=== PATIENT | female | born 1950 | race Caucasian/White ===

== ENCOUNTER 2019-08-08 13:26 | Inpatient (IN) | payer MEDICARE, OTHER ==
[~2019-08-08] VITALS: Ht 165.1 cm; Wt 54.4 kg
[2019-08-08 13:34] VITALS: BP 162/76
[2019-08-08] MEDS ORDERED: LEVOXYL112 MCG PO (13:38)
[2019-08-08 15:23] LABS: ABSOLUTE BASOPHILS 0.1 thou/uL (0.0-0.2); ABSOLUTE EOSINOPHILS 0.2 thou/uL (0.0-0.7); ABSOLUTE LYMPHOCYTES 1.3 thou/uL (0.8-5.3); ABSOLUTE MONOCYTES 0.7 thou/uL (0.0-1.2); ABSOLUTE NEUTROPHILS 10.6 thou/uL (1.6-8.1); BASOPHILS 0.6 %; EOSINOPHILS 1.3 %; HEMATOCRIT 36.8 % (37.0-47.0); HEMOGLOBIN 12.7 gm/dL (12.0-15.0); LYMPHOCYTES 9.9 %; MCH 35.1 pg (26.0-34.0); MCHC 34.4 g/dL (28.0-37.0); MCV 102.1 fL (80.0-100.0); MONOCYTES 5.5 %; MPV 8.2 fl. (7.2-11.1); NUCLEATED RBCS 0 /100WBC; PLATELET COUNT* 199 thou/uL (150-400); POLYS 82.7 %; RBC 3.61 mil/uL (4.20-5.00); RDW-CV 12.7 % (10.5-14.5); WBC 12.8 thou/uL (4.0-11.0)
[2019-08-08 15:31] LABS: CALCIUM 8.9 mg/dL (8.5-10.1); POTASSIUM 4.2 mmol/L (3.5-5.1)
[2019-08-08 15:32] LABS: APTT 23.8 Seconds (25.0-31.3); PROTIME 10.5 Seconds (9.20-11.50)
[2019-08-08 15:36] LABS: ALBUMIN 3.7 g/dL (3.4-5.0); TOTAL BILIRUBIN 0.4 mg/dL (<0.1-1.0); TOTAL PROTEIN 7.1 g/dL (6.4-8.2)
[2019-08-08 16:27] VITALS: BP 170/81
[2019-08-08 17:21] VITALS: BP 165/86
--- NOTE | 2019-08-08 17:27 | NUR ---
PT ADMITTED/ PT ALERT AND ORIENTED. PT ORIENTED TO ROOM. ASSESSMENT COMPLETED. FALL RISK PRECAUITIONS IN PLACE. WILL CONTINUE TO MONITOR.
--- NOTE | 2019-08-08 18:12 | NUR ---
PT REMAINED ALERT AND ORIENTED. PT DENIED ANY PAIN AT THIS TIME. FALL RISK PRECAUTIONS IN PLACE. HOURLY ROUNDING COMPLETED. WILL CONTINUE TO MONITOR.
[2019-08-08 19:30] VITALS: BP 159/76
--- NOTE | 2019-08-09 04:07 | NUR ---
PT A&OX4, ON ROOM AIR, VSS, PT NWB TO RLE, PURE WICK IN PLACE. PT REFUSED Q2H TURNS D/T PAIN, PAIN MEDS REFUSED - PT STATES SHE HAS NO PAIN IF SHE DOESN'T MOVE. SCD'S IN PLACE, HEELS OFF LOADED WITH PILLOW. PT SLEEPING WELL. WILL CONTINUE WITH PLAN OF CARE.
[2019-08-09 07:56] VITALS: BP 173/77
[2019-08-09 09:25] LABS: HEMATOCRIT 33.4 % (37.0-47.0); HEMOGLOBIN 11.8 gm/dL (12.0-15.0); MCHC 35.3 g/dL (28.0-37.0); MCV 102.1 fL (80.0-100.0); MPV 7.9 fl. (7.2-11.1); RBC 3.28 mil/uL (4.20-5.00); RDW-CV 12.6 % (10.5-14.5); WBC 8.7 thou/uL (4.0-11.0)
[2019-08-09 09:33] LABS: CALCIUM 7.9 mg/dL (8.5-10.1); POTASSIUM 3.8 mmol/L (3.5-5.1)
--- NOTE | 2019-08-09 10:50 | NUR ---
ASSUMED CARE OF PATIENT. I ASSESSED PT AND THIER NEEDS. I AGREE WITH MORNING ASSESSMENT. FALL RISK PRECAUTIONS IN PLACE. WILL CONTINUE TO MONITOR.
--- NOTE | 2019-08-09 16:47 | NUR ---
Avni STEWARD.RECOMMENDED FRONT WHEEL WALKER FOR PT. PT.HAS CRUTHES BUT THERAPY SAID SHE WOULD BE SAFER WITH A WALKER. SHE LIVES WITH HER . SHE IS NORMALLY INDEPENDENT. FELL AT WORK. NOT WALKING IN THERAPY SO WILL NO BE DISCHARGED TODAY, PER NURSING.
[2019-08-09 17:22] VITALS: BP 148/78
--- NOTE | 2019-08-09 17:33 | NUR ---
PT REMAINED ALERT AND ORIENTED. PT WORKED WITH THERAPY. BRACE ON PT. PT DENIES ANY PAIN. PT EDUCATED ON USING CALLIGHT WHEN NEEDING ASSITANCE. FALL RISK PRECAUTIONS IN PLACE. HOURLY ROUNDING COMPLETED. WILL CONTINUE TO MONITOR.
[2019-08-09 21:24] VITALS: BP 154/78
--- NOTE | 2019-08-10 06:03 | NUR ---
PUREWICK IN PLACE, DID NOT GET UP DURING NIGHT. PAIN IS WELL CONTROLLED. SHE HAD FLUIDS RUNNING ALL SHIFT AND RECEIVED ALL MEDS SCHEDULED. ALERT AND ORIENTED, ON ROOM AIR, HIP ABDUCTOR BRACE IN PLACE. PATIENT WANTS TO DISCHARGE TODAY. WILL CONTINUE TO MONITOR.
[2019-08-10 07:00] VITALS: BP 146/69
[2019-08-10] MEDS ORDERED: NORCO 5-325 TA1 EAC1 PO (09:46)
--- NOTE | 2019-08-10 10:00 | NUR ---
PT.LIVES WITH . HE CAN ASSIST HER NEEDED. SHE WOULD LIKE TO DO OUTPT.THERAPY. SHE WOULD LIKE TO SET IT UP ON HER OWN. SHE SAID SHE DOES HAVE A WALKER ATHOME, SO DOES NOT NEED ONE. TOLD HER TO CHECK WHICH THERAPY AGENCY HER WORKMANS COMP WOULD LIKE HER TO USE. SHE SAID SHE WANTED THIS FILED UNDER HER MEDICARE AND [facility] BENEFIT PLAN, NOT WORK COMP. TOLD HER SHE COULD CHOSE ANY OUTPT THERAPY DEPT TO USE. SHE SAID SHE WOULD SET IT UP. PT.READY FOR DISCHARGE.
[2019-08-10 10:06] VITALS: BP 146/69
--- NOTE | 2019-08-10 11:16 | NUR ---
PT REMAINED ALERT AND ORIENTED. PT GIVEN DISCHARGE INFORMATION, CARE NOTES, AND PRESCRIPTIONS. IV REMOVED. BRACE IN PLACE. PT BELONGINGS GATHERED. PT LEFT VIA WHEELCHAIR WITH NURSING STAFF TO HOME. FALL RISK PRECAUTIONS IN PLACE. HOURLY ROUNDING COMPLETED.
[2019-08-10 11:26] VITALS: BP 146/69
--- NOTE | 2019-08-10 21:31 | CON ---
[address] [address] CONSULTATION Name: IVANA GAO Room: [address] IN M.R.#: [id number] Admission: 08/08/19 Attend Phys: Angela Singh MD Discharge: 08/10/19 Date of : 54 Report #: [id number] THIS REPORT FOR: //name// cc: DUSTIN Juarez family physician/PCP DUSTIN - Ann family physician/PCP ~ THIS REPORT FOR: //name// CC: DUSTIN physician/PCP Angela Singh DATE OF SERVICE: 08/09/2019 ADMITTING DIAGNOSES: Right femur fracture around prior total hip arthroplasty. HISTORY OF PRESENT ILLNESS: The patient presented to [facility] for evaluation in the ER following a fall approximately at noon on 08/08/2019 at work. The patient states she tripped on a sheet and fell under her right hip. The patient had no head trauma or loss of consciousness. The patient was not having hip pain prior to this fall. The patient had previous total hip replacement over 5 years ago and was doing extremely well with this. The patient states the pain is now severe with movement. It lasts for several hours throughout the day. At rest, it is near 0-10. The patient also sits in bed currently without pain; however, if she moves or twists, it does cause increasing pain in her hip to a 9/10. We are consulted for further evaluation. PAST MEDICAL HISTORY: 1. Hypertension. 2. Kidney stone. 3. Hypothyroidism. PAST SURGICAL HISTORY: 1. Previous right total hip arthroplasty. 2. Hysterectomy. ALLERGIES: AMPICILLIN. PHYSICAL EXAMINATION: VITAL SIGNS: Temperature 36.7, pulse 60, respirations 16, blood pressure 170/81, pulse ox 97%. MEDICATIONS: Levothyroxine. FAMILY HISTORY: The patient has no pertinent family history. Noncontributory. SOCIAL HISTORY: The patient denies any tobacco, alcohol [place] [address] CONSULTATION Name: SAM GAOGERSON Garcia Room: [address]#: [id number] Admission: 08/08/19 Attend Phys: Angela Singh MD Discharge: 08/10/19 Date of : 54 Report #: [id number] REVIEW OF SYSTEMS: A 12-system review of systems was performed and negative except for pertinent positives in the HPI. PHYSICAL EXAMINATION: GENERAL: The patient is well developed, well nourished, in minimal distress, resting comfortably in bed. HEENT: Eyes: PERRLA. EOMI. Nose: Nares patent. Moist mucous membranes. Ears: Without hearing deficit. TMs normal. Throat: The patient is without exudate. Pharynx normal. NECK: Normal on inspection. Nontender. Supple. Full range of motion. RESPIRATORY: Chest nontender. Lungs clear. Normal breath sounds. No respiratory distress. CARDIOVASCULAR: Regular rate and rhythm. Pulses positive throughout the upper and lower extremities. No murmur. Peripheral pulses, +2 carotid, +2 dorsal pedis bilaterally. ABDOMEN: Normal bowel sounds. Soft, nontender. EXTREMITIES: The patient's right lower extremity does have some mild pain with log roll; however, able to perform exam. The patient is with leg off the bed without resistance and with only minimal effort. Does have pain in the groin with movement. NEUROLOGIC: Cranial nerves normal as tested. No motor deficits. Oriented x 3. SKIN: Normal color. Warm and dry LYMPHATIC: No adenopathy. Normal lymph nodes. LABORATORY EVALUATION: Sodium 139, potassium 4.2, chloride 102, carbon dioxide 29, BUN 17, creatinine 1, glucose 105, AST 28, ALT 26, alkaline phosphatase 128. INR is 1.0. White blood cells 12.8, hemoglobin 12.7, hematocrit 36.8, and platelet count 199. X-RAY EVALUATION: X-ray of the pelvis obtained on 08/08/2019 for previous right hip replacement, no acute abnormality identified. X-ray of the right femur, AP and lateral, after this point did show a subtle acute intertrochanteric nondisplaced fracture, partially obscured by prosthesis. Prior total hip arthroplasty with minimal patellofemoral arthrosis with suspected small joint effusion. PLAN: At this time, the patient is on bed rest. We will allow for use of the left lower extremity, nonweightbearing on the right lower extremity. Abduction brace is ordered and we would like to have this in place on her right hip to allow for stabilization and nonoperative treatment. The patient discussed both surgery and nonsurgical treatment and has elected to proceed with nonsurgical treatment at this time due to the femur fracture, which is acute and nondisplaced. The patient discussed this is most likely a [place] type A fracture and can be attempted nonoperative treatment. The patient would like to proceed with this. Continue pain control with medicine. Up with physical [facility] [address] [facility] [place] [address] CONSULTATION Name: IVANA GAO Room: [address] IN .R.#: [id number] Admission: 08/08/19 Attend Phys: Angela Singh MD Discharge: 08/10/19 Date of : 54 Report #: [id number] therapy to the left lower extremity. Continue nonweightbearing to the right lower extremity. Once brace in place, the patient will be discharged to home care. States she has her who is able to care for her. I would like to see her back in 1-2 weeks in the office with new x-rays of this hip. Please contact the office for further appointments. <ELECTRONICALLY SIGNED> By: Jc Olivares II, DO 08/10/19 2131 0847 [id number] Olivares II, DO /nt
== END 2019-08-10 11:26 | disposition home or self-care (01) | DRG 536 ==
LOC: M.ERS 13:26 → M.ORTHSURG 15:20 → M.TBA-ER 15:20 → M.ORTHSURG 16:50
PROVIDERS: Physician Assistant; ADMIT Internal Medicine; ATTEND Internal Medicine
DX: S72.144A Nondisplaced intertrochanteric fracture of right femur, initial encounter for closed fracture (principal); I10 Essential (primary) hypertension; Z87.442 Personal history of urinary calculi; E03.9 Hypothyroidism, unspecified; Z96.641 Presence of right artificial hip joint; Z90.710 Acquired absence of both cervix and uterus; Z88.1 Allergy status to other antibiotic agents; W18.39XA Other fall on same level, initial encounter; Y93.89 Activity, other specified; Y92.89 Other specified places as the place of occurrence of the external cause; Y99.8 Other external cause status

== ENCOUNTER 2020-03-26 15:28 | Emergency (ER) | payer MEDICARE, OTHER ==
[~2020-03-26] VITALS: Ht 165.1 cm; Wt 58.1 kg
[~2020-03-26 15:28] MED LIST: LEVOXYL112 MCG PO; NORCO 5-325 TA1 EAC1 PO
[2020-03-26 16:02] LABS: URINE BILIRUBIN NEGATIVE (Negative); URINE BLOOD TRACE (Negative); URINE CLARITY CLEAR; URINE COLOR STRAW; URINE GLUCOSE-RANDOM NEGATIVE (Negative); URINE KETONES NEGATIVE (Negative); URINE LEUKOCYTES-REFLEX NEGATIVE (Negative); URINE NITRITE-REFLEX NEGATIVE (Negative); URINE PROTEIN NEGATIVE (Negative); URINE SPECIFIC GRAVITY <= 1.005 (1.005-1.030); URINE UROBILINOGEN 0.2 E.U./dl (0.2-1.0)
[2020-03-26 16:12] LABS: ABSOLUTE BASOPHILS 0.1 thou/uL (0.0-0.2); ABSOLUTE EOSINOPHILS 0.1 thou/uL (0.0-0.7); ABSOLUTE LYMPHOCYTES 2.9 thou/uL (0.8-5.3); ABSOLUTE MONOCYTES 1.2 thou/uL (0.0-1.2); ABSOLUTE NEUTROPHILS 7.6 thou/uL (1.6-8.1); BASOPHILS 0.6 %; EOSINOPHILS 1.1 %; HEMATOCRIT 40.4 % (37.0-47.0); HEMOGLOBIN 13.5 gm/dL (12.0-15.0); LYMPHOCYTES 24.4 %; MCH 35.2 pg (26.0-34.0); MCHC 33.4 g/dL (28.0-37.0); MCV 105.5 fL (80.0-100.0); MONOCYTES 9.7 %; MPV 7.8 fl. (7.2-11.1); NUCLEATED RBCS 0 /100WBC; PLATELET COUNT* 207 thou/uL (150-400); POLYS 64.2 %; RBC 3.83 mil/uL (4.20-5.00); RDW-CV 13.2 % (10.5-14.5); WBC 11.9 thou/uL (4.0-11.0)
[2020-03-26 16:20] LABS: CALCIUM 9.8 mg/dL (8.5-10.1); CREATININE 1.1 mg/dL (0.6-1.3)
[2020-03-26 16:22] LABS: POTASSIUM 2.6 mmol/L (3.5-5.1)
[2020-03-26 16:23] LABS: APTT 21.7 Seconds (25.0-31.3); PROTIME 10.7 Seconds (9.20-11.50)
[2020-03-26 16:33] LABS: ALBUMIN 3.8 g/dL (3.4-5.0); TOTAL BILIRUBIN 0.7 mg/dL (<0.1-1.0); TOTAL PROTEIN 7.3 g/dL (6.4-8.2)
[2020-03-26] MEDS ORDERED: POTASSIUM20 PO (17:36)
[2020-03-26 17:55] VITALS: BP 170/96
--- NOTE | 2020-03-27 10:32 | EKG ---
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 : 1950 Requested By: Geronimo Neal Order Number: [id number] MD: Isael Yanes Measurements Intervals [place] Rate: 74 P: -41 [place]: 86 QRS: 40 QRSD: 82 T: 56 QT: 417 QTc: 463 Interpretive Statements Sinus rhythm Short [place] interval Abnormal R-wave progression, early transition No previous ECG available for comparison Electronically Signed On 03-27-2020 10:32:19 SAUSAGE GRINDER by Isael Yanes [email or web address] <ELECTRONICALLY SIGNED> By: Isael Yanes MD, [facility] 03/27/20 1032 155 155 Isael Yanes MD, [facility] /EPI
== END 2020-03-26 17:57 | disposition left against medical advice (07) ==
LOC: M.ERS 15:28
PROVIDERS: Emergency Medicine Emergency Medical Services
DX: I63.9 Cerebral infarction, unspecified (principal); E87.6 Hypokalemia; Z20.828 Contact with and (suspected) exposure to other viral communicable diseases; I10 Essential (primary) hypertension; E03.9 Hypothyroidism, unspecified; Z96.641 Presence of right artificial hip joint; Z87.442 Personal history of urinary calculi; Z90.710 Acquired absence of both cervix and uterus

== ENCOUNTER 2020-03-27 10:17 | Inpatient (IN) | payer MEDICARE, OTHER ==
[~2020-03-27] VITALS: Ht 165.1 cm; Wt 58.1 kg
--- NOTE | ~2020-03-27 | CON ---
[address] [address] CONSULTATION Name: SAM GAOGERSON Garcia Room: [address] IN M.R.#: [id number] Admission: 03/28/20 Attend Phys: Mark Guzmán MD Discharge: Date of : 54 Report #: [id number] THIS REPORT FOR: cc: Wu Kenney MD, Tuongvan T. MD ~ Mick Chinchilla MD DATE OF SERVICE: 03/28/2020 HISTORY OF PRESENT ILLNESS: This is a 70-year-old female patient who was evaluated by me to determine any neurological etiology for the patient's dizziness. The patient says that she was dizzy yesterday, but she is not having any dizziness anymore. She never had this kind of dizziness before. She said she walked this morning and she was not wobbly and she did not have any uncoordinated gait. REVIEW OF SYSTEMS: Indicate that the patient was found to be hypertensive, how long she has been is not clear, long time ago she used to be on antihypertensive, but she does not take any antihypertensive now. She had hip problems in the past. To me, she denies any history of stroke. She said that she did not have the kind of dizziness she had. She denies any new eye, cardiac, respiratory, GI, , musculoskeletal, constitutional, dermatological, hematological, psychiatric, throat, allergic symptom associated with present symptomatology. She does have a history of kidney disease. PAST MEDICAL HISTORY: Positive for kidney problems and thyroid problems. FAMILY HISTORY: Positive for vascular disease. SOCIAL HISTORY: She does not smoke or abuse alcohol. PHYSICAL EXAMINATION: GENERAL: The patient's examination indicates that the patient is alert, responsive, able to follow simple and complex command. Her cranial nerve examination is unremarkable specifically, there is no nystagmus. She has symmetrical strength, sensation, reflexes and tone in all 4 extremities. Her position sense is intact in both lower extremities. There is no meningeal sign. I could not have a very good look at the patient's fundus. She is very well-built individual and her hearing and vision is adequate. NECK: There is no thyroid mass. There is no carotid bruit. CARDIAC: Unremarkable. LUNGS: No respiratory difficulty or rhonchi was noticed. Pulses are palpable. VITAL SIGNS: Blood pressure is 111/63, respirations 19, pulse is 84, [place] [address] CONSULTATION Name: IVANA GAO Room: [address]#: [id number] Admission: 03/28/20 Attend Phys: Mark Guzmán MD Discharge: Date of : 54 Report #: [id number] temperature is 98.1. Her blood pressure was higher when she came in. LABORATORY DATA: Her MCV is somewhat on the higher side and her vitamin B12 is somewhat on the lower side. She does not have any edema, cyanosis or jaundice. Her MRI of the brain is unremarkable. MRA of the head showed only subtle changes. Carotid Doppler is unremarkable. IMPRESSION: 1. It is unlikely that there is any neurological etiology for the patient's dizziness. She is being worked up for sepsis, ENT problems, cardiac problem, etc. and that is where I think we should concentrate. 2. She has an incidental finding of a possible aneurysm and possible vasculitis. The question is whether we should do further workup with a catheter angiogram or not and whether she needs further workup for vasculitis including idiopathic IT SOFTWARE DEVELOPER angiitis. This is an incidental finding, which does not have anything to do with the patient's symptoms. She needs a consultation with neuroradiologist as an outpatient to look at those films or a neurosurgeon to look at those films and see what they want to do. She also needs a consultation with a hairspring assembler as an outpatient to address the question of vasculitis as well as idiopathic IT SOFTWARE DEVELOPER angiitis. 3. Her vitamin B12 is low and MCV is high. I will suggest starting the patient on vitamin B12 supplement and checking a repeat vitamin B12 to make sure it is more than 400. 4. I will defer to you whether you want to do some basic collagen vascular workup here, or want to leave all the workup for the possibility of vasculitis to the hairspring assembler which she should see as an outpatient. We do not plan to follow up this patient, but please call if there is any question or if any followup is needed. Thank you very much for this referral. By: [id number] [id number] Chinchilla MD /nt
[~2020-03-27 10:17] MED LIST changes: +POTASSIUM20 PO
[2020-03-27 10:38] VITALS: BP 145/91
[2020-03-27 11:07] LABS: ABSOLUTE BASOPHILS 0.1 thou/uL (0.0-0.2); ABSOLUTE EOSINOPHILS 0.1 thou/uL (0.0-0.7); ABSOLUTE MONOCYTES 1.2 thou/uL (0.0-1.2); ABSOLUTE NEUTROPHILS 7.8 thou/uL (1.6-8.1); BASOPHILS 0.8 %; EOSINOPHILS 1.2 %; HEMATOCRIT 40.2 % (37.0-47.0); HEMOGLOBIN 13.4 gm/dL (12.0-15.0); LYMPHOCYTES 17.6 %; MCHC 33.3 g/dL (28.0-37.0); MONOCYTES 10.5 %; MPV 7.9 fl. (7.2-11.1); NUCLEATED RBCS 0 /100WBC; PLATELET COUNT* 195 thou/uL (150-400); POLYS 69.9 %; RBC 3.83 mil/uL (4.20-5.00); RDW-CV 13.1 % (10.5-14.5); WBC 11.1 thou/uL (4.0-11.0)
[2020-03-27 11:16] LABS: CALCIUM 8.9 mg/dL (8.5-10.1); CREATININE 1.1 mg/dL (0.6-1.3); POTASSIUM 3.5 mmol/L (3.5-5.1)
[2020-03-27 11:19] LABS: APTT 21.7 Seconds (25.0-31.3); PROTIME 10.6 Seconds (9.20-11.50)
[2020-03-27 11:29] LABS: ALBUMIN 3.6 g/dL (3.4-5.0); TOTAL BILIRUBIN 0.6 mg/dL (<0.1-1.0); TOTAL PROTEIN 6.9 g/dL (6.4-8.2)
[2020-03-27 11:53] LABS: URINE BILIRUBIN NEGATIVE (Negative); URINE BLOOD TRACE (Negative); URINE CLARITY CLEAR; URINE COLOR YELLOW; URINE GLUCOSE-RANDOM NEGATIVE (Negative); URINE KETONES NEGATIVE (Negative); URINE LEUKOCYTES-REFLEX TRACE (Negative); URINE NITRITE-REFLEX NEGATIVE (Negative); URINE PROTEIN NEGATIVE (Negative)
[2020-03-27 12:00] LABS: SQUAMOUS 0-3 Few /LPF (0-3); URINE RBC None Seen /HPF (0-2); URINE WBC-REFLEX 0-5 Rare /HPF (0-5)
[2020-03-27 12:02] LABS: BACTERIA-REFLEX None Seen /HPF (None Seen); CALCIUM OXALATE 4-10 Moderate /LPF (None Seen); CASTS None Seen /LPF (None Seen); MUCUS >6 Heavy strn/LPF (None Seen)
--- NOTE | 2020-03-27 14:47 | EKG ---
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 03/27/20 1447 1054 1054 Isael Yanes MD, [facility] /EPI
--- NOTE | 2020-03-27 15:57 | 2DMMODE ---
[place] [address] 2 D/M-MODE ECHOCARDIOGRAM Name: ZACHERY GAOKITA Garcia Room: [address] [place]#: [id number] Admission: 03/27/20 Attend Phys: Mark Guzmán, Discharge: Date of : 54 Date of Service: 03/27/20 1557 Report #: [id number] THIS REPORT FOR: cc: Wu Kenney MD, Tuongvan T. MD Blick, David R. MD [facility] ~ APPROVED REPORT Study performed: 03/27/2020 14:49:34 EXAM: Comprehensive 2D, Doppler, and color-flow Echocardiogram Patient Location: In-Patient Room #: er Status: routine BSA: 1.64 HR: 70 bpm BP: 162/92 mmHg Rhythm: NSR Other Information Study Quality: Good Indications CVA/TIA Echo Enhancing Agent Indication: Rule out Shunt Agent(s) / Amount(s) Used: Agitated Saline 10 cc 2D Dimensions IVSd: 10.90 (7-11mm) LVOT Diam: 20.39 (18-24mm) LVDd: 34.21 mm PWd: 9.10 (7-11mm) Ascending Ao: 28.96 (22-36mm) LVDs: 17.49 (25-40mm) Aortic Root: 27.46 mm Volumes Left Atrial Volume (Systole) LA ESV Index: 23.40 mL/m2 Aortic Valve AoV Peak Gianfranco.: 1.67 m/s AO Peak Gr.: 11.13 mmHg LVOT Max P.12 mmHg AO Mean Gr.: 5.95 mmHg LVOT Mean P.50 [place] [address] 2 D/M-MODE ECHOCARDIOGRAM Name: IVANA GAO Room: [address] M.R.#: [id number] Admission: 03/27/20 Attend Phys: Mark Guzmán, Discharge: Date of : 54 Date of Service: 03/27/20 1557 Report #: [id number] LVOT Max V: 1.74 m/s AO V2 VTI: 30.76 cm LVOT Mean V: 1.07 m/s CLARE (VTI): 3.32 cm2 LVOT V1 VTI: 31.23 cm Mitral Valve E/A Ratio: 0.80 MV Decel. Time: 355.35 ms MV E Max Gianfranco.: 0.78 m/s MV PHT: 103.05 ms MVA (PHT): 2.13 cm2 TDI E/Lateral E': 8.67 E/Medial E': 9.75 Medial E' Gianfranco.: 0.08 m/s Lateral E' Gianfranco.: 0.09 m/s Pulmonary Valve PV Peak Gianfranco.: 1.03 m/s PV Peak Gr.: 4.22 mmHg Tricuspid Valve RAP Estimate: 5.00 mmHg TR Peak Gr.: 21.87 mmHg RVSP: 26.00 mmHg PA Pressure: 26.00 mmHg Left Ventricle The left ventricle is normal size. There is normal LV segmental wall motion. There is normal left ventricular wall thickness. Left ventricular systolic function is normal. The left ventricular ejection fraction is within the normal range. LVEF is 65-70%. Grade I - abnormal relaxation pattern. Right Ventricle The right ventricle is normal size. The right ventricular systolic function is normal. Atria The left atrium size is normal. The interatrial septum is intact with no evidence for an atrial septal defect. The right atrium size is normal. Aortic Valve The aortic valve is normal in structure. No aortic regurgitation is present. There is no aortic valvular stenosis. Mitral Valve The mitral valve is normal in structure. [place] [address] 2 D/M-MODE ECHOCARDIOGRAM Name: SAM GAOGERSON Radha Room: [address] M.R.#: [id number] Admission: 03/27/20 Attend Phys: Mark Guzmán, Discharge: Date of : 54 Date of Service: 03/27/20 1557 Report #: [id number] No evidence of mitral valve stenosis. Tricuspid Valve The tricuspid valve is normal in structure. Trace tricuspid regurgitation. No pulmonary hypertension. Pulmonic Valve The pulmonary valve is normal in structure. There is no pulmonic valvular regurgitation. Great Vessels The aortic root is normal in size. IVC is normal in size and collapses >50% with inspiration. Pericardium There is no pericardial effusion. <Conclusion> LVEF is 65-70%. The interatrial septum is intact with no evidence for an atrial septal defect. <ELECTRONICALLY SIGNED> By: Isael Yanes MD, FACC 03/27/20 1557 1557 1557 Isael Yanes MD, FACC /INF
[2020-03-27 17:45] VITALS: BP 118/75
[2020-03-27 21:25] VITALS: BP 120/71
[2020-03-27 21:30] VITALS: BP 159/72
[2020-03-28 04:00] VITALS: BP 127/60
[2020-03-28 05:20] LABS: CHOLESTEROL 173 mg/dL (<200); HDL CHOLESTEROL 67 mg/dL (>40); LDL CHOLESTEROL 91 mg/dL (<100); TC:HDL 2.6 Ratio (Not establshd); TRIGLYCERIDE 79 mg/dL (<150); VLDL 16 mg/dL (<40)
[2020-03-28 05:32] LABS: SERUM ASSESSMENT Clear
[2020-03-28 08:00] VITALS: BP 111/63
[2020-03-28 12:00] VITALS: BP 112/66
[2020-03-28 16:00] VITALS: BP 147/82
[2020-03-28 20:04] VITALS: BP 132/72
[2020-03-28 23:43] VITALS: BP 125/65
[2020-03-29 02:06] LABS: GLYCOHEMOGLOBIN (HGB A1C) 5.5 % (4.8-5.6)
[2020-03-29 03:37] VITALS: BP 136/71
[2020-03-29 04:25] LABS: HEMATOCRIT 36.8 % (37.0-47.0); HEMOGLOBIN 12.5 gm/dL (12.0-15.0); MCH 35.2 pg (26.0-34.0); MCV 103.6 fL (80.0-100.0); MPV 8.4 fl. (7.2-11.1); RBC 3.55 mil/uL (4.20-5.00); RDW-CV 12.9 % (10.5-14.5); WBC 9.9 thou/uL (4.0-11.0)
[2020-03-29 04:31] LABS: CALCIUM 8.5 mg/dL (8.5-10.1); POTASSIUM 3.6 mmol/L (3.5-5.1)
[2020-03-29 08:00] VITALS: BP 137/71
[2020-03-29 11:49] VITALS: BP 131/70
[2020-03-29 16:35] VITALS: BP 131/70
== END 2020-03-29 17:17 | disposition home or self-care (01) | DRG 149 ==
LOC: M.ERS 10:17 → M.TBA-ER 12:12 → M.2W 12:12
PROVIDERS: Emergency Medicine Emergency Medical Services; Family Medicine; Internal Medicine; ADMIT Internal Medicine; ATTEND Internal Medicine
DX: H81.4 Vertigo of central origin (principal); I16.1 Hypertensive emergency; I10 Essential (primary) hypertension; E87.6 Hypokalemia; E03.9 Hypothyroidism, unspecified; Z96.641 Presence of right artificial hip joint; Z20.822 Contact with and (suspected) exposure to COVID-19; Z90.710 Acquired absence of both cervix and uterus; Z88.1 Allergy status to other antibiotic agents; Z79.899 Other long term (current) drug therapy

== ENCOUNTER 2020-08-23 12:13 | Inpatient (IN) | payer MEDICARE, OTHER ==
[~2020-08-23] VITALS: Ht 165.1 cm; Wt 60.3 kg
[2020-08-23] VITALS (12 sets, daily range): BP systolic 119–206; BP diastolic 55–90
[2020-08-23 12:42] LABS: ABSOLUTE BASOPHILS 0.1 thou/uL (0.0-0.2); ABSOLUTE LYMPHOCYTES 1.7 thou/uL (0.8-5.3); ABSOLUTE MONOCYTES 1.1 thou/uL (0.0-1.2); ABSOLUTE NEUTROPHILS 10.4 thou/uL (1.6-8.1); BASOPHILS 0.4 %; EOSINOPHILS 0.3 %; HEMATOCRIT 37.1 % (37.0-47.0); HEMOGLOBIN 12.9 gm/dL (12.0-15.0); LYMPHOCYTES 13.1 %; MCH 35.9 pg (26.0-34.0); MCHC 34.8 g/dL (28.0-37.0); MONOCYTES 8.3 %; MPV 7.8 fl. (7.2-11.1); NUCLEATED RBCS 0 /100WBC; PLATELET COUNT* 194 thou/uL (150-400); POLYS 77.9 %; RDW-CV 13.2 % (10.5-14.5); WBC 13.4 thou/uL (4.0-11.0)
[2020-08-23 12:58] LABS: CALCIUM 8.6 mg/dL (8.5-10.1); CREATININE 0.9 mg/dL (0.6-1.3); POTASSIUM 3.1 mmol/L (3.5-5.1)
[2020-08-23 13:03] LABS: ALBUMIN 3.6 g/dL (3.4-5.0); CK-MB MASS 130.3 ng/mL (<0.5-3.6); MAGNESIUM 1.9 mg/dL (1.8-2.4); TOTAL BILIRUBIN 0.6 mg/dL (<0.1-1.0); TOTAL PROTEIN 7.4 g/dL (6.4-8.2)
--- NOTE | 2020-08-23 16:09 | EKG ---
[place] [address] ELECTROCARDIOGRAM REPORT Name: IVANA GAO Room: [address] ADM IN .R.#: [id number] Admission: 08/23/20 Attend Phys: Isael Yanes MD Discharge: Date of : 54 Date of Service: 08/23/20 1217 Report #: [id number] THIS REPORT FOR: //name// [facility] ED Test Date: 2020-08-23 Test Time: 12:17:00 Pat Name: IVANA GAO Department: Room: 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
--- NOTE | 2020-08-23 16:12 | EKG ---
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: FABI : 1950 Requested By: Tod Li Order Number: [id number] MD: Isael Yanes Measurements Intervals [place] Rate: 72 P: -42 [place]: 95 QRS: 39 QRSD: 97 T: 246 QT: 473 QTc: 518 Interpretive Statements ectopic atrial rhythm Short [place] interval Low voltage, extremity leads Probable posterior infarct, Abnrm T, consider ischemia, anterolateral lds Prolonged QT interval Compared to ECG 03/27/2020 10:54:[address] elevation no longer noted Prolonged QT interval now present Electronically Signed On 08-23-2020 16:11:53 CDT by Isael Yanes [email or web address] <ELECTRONICALLY SIGNED> By: Isael Yanes MD, [facility] 08/23/20 1611 1529 1529 Isael Yanes MD, [facility] /EPI
--- NOTE | 2020-08-23 16:48 | CARD ---
[address] [address] CARDIAC CATH REPORT Name: IVANA JUNIOR Room: [address] IN [facility]#: [id number] Admission: 08/23/20 Attend Phys: Isael Yanes MD, F Discharge: Date of : 54 Report #: [id number] THIS REPORT FOR: cc: Wu Kenney MD, Tuongvan T. MD Blick, David R. MD [facility] ~ APPROVED REPORT Study performed: 08/23/2020 12:28:28 Patient Details Patient Status: ED Room #: 15 The patient is a 70 year-old female Event Personnel Isael Yanes Rubber Compounder Mixer, Amber Flowers RN Crankshaft Straightener, Claudia Junior RN Monitor , Sancho Lucas RTR Scrub Procedures Performed Art Access - R radial artery Left Heart Cath w/or w/o Coronaries [facility] MAR Place Revasc w/wo Plasty Single OM-[address] w/wo Plasty Single LAD Indication Abnormal ECG, STEMI (>12 hrs to = 24 hrs), Chest pain Risk Factors Hypertension Admission/Lab Medications/Medications given during procedure Aspirin, Glycoprotein IllbIlla Inhibitors, Beta BlockerHeparin Unfract. Procedure Narrative The patient was brought emergently to the Cardiac Catheterization Laboratory and was prepped and draped in a sterile manner. The right wrist was infiltrated with 2% Lidocaine subcutaneous anesthesia. The right wrist accessed via ultrasound guidance. A Slender Glidesheath sheath was inserted into the right radial artery. Coronary angiography was performed using coronary diagnostic catheters. The right coronary system was accessed and visualized with a 6 Fr JR4 catheter. The left coronary system was accessed and visualized with a 6Fr JL4 catheter. The left ventricle was [place] [address] CARDIAC CATH REPORT Name: SAM JUNIORGERSON Garcia Room: [address]#: [id number] Admission: 08/23/20 Attend Phys: Isael Yanes MD, F Discharge: Date of : 54 Report #: [id number] a 6Fr Pigtail catheter. Left ventricular/Aortic Valve gradient assessed via catheter pullback. Left ventriculogram was performed in CAL projection. The patient tolerated the procedure well and there were no complications associated with the procedure. A hematoma occurred. Very small hematoma resolved prior to transfer to floor Intraoperative Conscious Sedation Sedation start time: 13:03 Case end Time: 13:47 Fentanyl 25 mcg Versed 1 mg Fluoro Time: 12.0 minutes Dose: DAP 37212 cGycm2 1802 mGy Contrast Type and Amount: Visipaque 270 ml Coronary Angiography The patient's coronary anatomy is right dominant. Diagnostic Cath Left Main 0% stenosis LAD 50% proximal, 90% mid, and 80% distal stenosis. The apical LAD was a small vessel and had a 90% stenosis Diagonal 1 small vessel with 70% ostial stenosis Diagonal 2 medium sized vessel with 70% ostial stenosis Circumflex 30% proximal and 30% mid stenosis OM3 large vessel that was 100% occluded distally with thrombus noted. Retrograde collateral flow was noted from the RCA. Right Coronary 50% mid and 50% distal stenosis noted R PDA 90% ostial stenosis noted Left Ventriculography The left ventricle is normal in size with contractility. The left ventricular ejection fraction is estimated to be 30-35%. Left ventricular wall motion abnormalities are not present. There is no mitral insufficiency. Akinesis noted of the entire apex. Hemodynamics The aortic pressure is 169/89 mmHg with a mean of 121 mmHg. The left ventricular pressure is 169/23 mmHg with a mean of mmHg. The left ventricular end diastolic pressure is 31 mmHg. There was no gradient across the aortic valve upon pullback. Pullback from the left ventricle to the aorta revealed no gradient [place] [address] CARDIAC CATH REPORT Name: IVANA JUNIOR Room: [address]#: [id number] Admission: 08/23/20 Attend Phys: Isael Yanes MD, F Discharge: Date of : 54 Report #: [id number] valve. PCI Technique Lesion Anticoagulation was achieved with Heparin. bolus of IV aggrastat given Percutaneous coronary intervention was performed on the third obtuse marginal branch segment. The lesion stenosis prior to intervention was 100% with ANNETTE 1 flow. A 6FR XB 3.0 100CM Guide Catheter was used to engage the lm ostium. A IG: BMW 190cm Interventional Guidewire was used to cross the lesion. BALLOON DILATION A Balloon catheter Trek RX 2.5 X 8 was inserted and inflated up to 8.00atm for 12seconds. Repeat angiography revealed the following post-dilatation results: 50% stenosis. STENT DEPLOYMENT A drug-eluting stent Ari RX Stent 2.5X38mm was inserted and inflated up to 10.00atm for 16seconds. Repeat angiography revealed the following post-stent deployment results: 0% stenosis. Additional Inflation: 11.00atm for 12seconds. Additional Inflation: 14.00atm for 13seconds. Additional Inflation: 16 atmfor 6 seconds Additional Inflation:19 clinton for 17 seconds Final angiography reveals 0 % stenosis with ANNETTE 3 flow. PCI Technique Lesion 2 Percutaneous Coronary Intervention was performed on the mid and distal left anterior descending artery segment. The lesion stenosis prior to intervention was 90% with ANNETTE 3 flow. A XB3.0 Guide Catheter was used to engage the lm ostium. A IG: BMW 190cm Interventional Guidewire was used to cross the lesion. Balloon Dilation A Balloon catheter Trek RX 2.5 X 8 was inserted and inflated up to 4.00atm for 8seconds. Repeat angiography revealed the following post-dilatation results: 50% stenosis. Additional Inflation: 8.00atm for 12seconds. Stent Deployment A drug-eluting stent Alton RX Stent 2.18T62qn was inserted and inflated up to 8.00atm for 10seconds. Repeat angiography revealed the following post-stent deployment results: 0% stenosis. Additional Inflation: 12.00atm for 15seconds. Additional Inflation: 16.00atm for 14seconds. [address] [address] CARDIAC CATH REPORT Name: IVANA JUNIOR Room: [address] IN [place].#: [id number] Admission: 08/23/20 Attend Phys: Isael Yanes MD, F Discharge: Date of : 54 Report #: [id number] Final angiography reveals 0 % stenosis with ANNETTE 3 flow. Conclusion 1. Acute occlusion of the distal 3rd marginal branch of the circumflex artery. 2. 90% mid and 80% distal stenosis of the LAD. 3. 90% stenosis of the ostium of a small posterior descending branch of the RCA. 4. LVEF 30-35% 5. successful placement of a drug eluting stent in the 3rd marginal branch of the circumflex artery. 6. successful placemnt of a drug eluting stent in the mid and distal LAD. Recommendations Cardiac Rehabilitation Referral Aggressive Medical Therapy Medications Administered Prasugrel <ELECTRONICALLY SIGNED> By: Isael Yanes MD, [facility] 08/23/20 1648 47 47Isael Yanes MD, FAC /INF
[2020-08-24] VITALS (18 sets, daily range): BP systolic 101–182; BP diastolic 52–74
[2020-08-24 03:30] LABS: HEMATOCRIT 28.9 % (37.0-47.0); MCH 36.6 pg (26.0-34.0); MCHC 35.9 g/dL (28.0-37.0); MCV 102.1 fL (80.0-100.0); MPV 8.3 fl. (7.2-11.1); RBC 2.84 mil/uL (4.20-5.00); RDW-CV 13.3 % (10.5-14.5); WBC 10.7 thou/uL (4.0-11.0)
[2020-08-24 03:53] LABS: CHLORIDE 107 mmol/L (98-107); TC:HDL 2.9 Ratio (Not establshd); VLDL 11 mg/dL (<40)
[2020-08-24 03:54] LABS: ANION GAP 7 mmol/L (7-16); BUN 11 mg/dL (7-18); CALCIUM 8.2 mg/dL (8.5-10.1); CHOLESTEROL 147 mg/dL (<200); CO2 26 mmol/L (21-32); CREATININE 0.9 mg/dL (0.6-1.3); GLUCOSE 120 mg/dL (70-99); HDL CHOLESTEROL 51 mg/dL (>40); LDL CHOLESTEROL 85 mg/dL (<100); SODIUM 140 mmol/L (136-145); TRIGLYCERIDE 57 mg/dL (<150)
[2020-08-24 03:58] LABS: POTASSIUM 4.4 mmol/L (3.5-5.1); SERUM ASSESSMENT CLEAR
[2020-08-24 03:59] LABS: TROPONIN-I LEVEL 32.54 ng/mL (<0.06)
[2020-08-24 04:00] LABS: HEMOGLOBIN 10.4 gm/dL (12.0-15.0)
--- NOTE | 2020-08-24 06:25 | NUR ---
ASSESSMENTS CHARTED. ALL AIR RELEASED FROM [employer]STAT DEVICE AND REMOVED THIS SHIFT. COVERED CATH SITE WITH GUAZE AND TEGADERM. NO EVIDENCE OF WORSENING HEMATOMA. SENSATION INTACT ON PATIENT'S HAND. AREA AROUND CATH SITE IS BRUISED BUT NOT GROWING LARGER THAN IT WAS AT THE START OF THE SHIFT. CARDIAC STATUS STABLE. VSS
--- NOTE | 2020-08-24 09:56 | H ---
[place] [address] HISTORY AND PHYSICAL Name: IVANA GAO Room: [address] ADM IN M.Lilia.#: [id number] Admission: 08/23/20 Attend Phys: Isael Yanes MD, F Discharge: Date of : 54 Report #: [id number] THIS REPORT FOR: cc: Wu Kenney MD, Tuongvan T. MD Blick, David R. MD [facility] ~ DOC #: [id number] cc: MD Isael Hernandez MD [facility] ADMIT DATE: 08/23/2020 CARDIOLOGY STAT HISTORY AND PHYSICAL HISTORY OF PRESENT ILLNESS: The patient is a 70-year-old white female who came to the Emergency Room complaining of chest pain. The patient has no previous history of heart disease. She does have a history of hypertension, but when her blood pressure was noted to be normal, she was taken off of high blood pressure pills several years ago. 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 She has had no previous cardiac evaluation. She was actually admitted to [facility] on 08/07/2020 two weeks ago complaining of pain in her leg after she fell. She did not lose consciousness. She was admitted for several days and was felt to have had vertigo. She was noted to be hypotensive and it was recommended she follow up with her primary care physician for resuming high blood pressure medications. The patient states she has had no history of chest pain until last evening. She felt a pressure in her chest. It tended to come and go. It lasted all night long. When she woke up this morning, she continued to have intermittent chest pressure. It never completely went away. She actually went to work. At work, the pain got worse, so she drove herself to the Emergency Room and was found to be having evidence of an acute inferior STEMI. She notes it as a pressure sensation, it did not radiate. She denied any shortness of breath, diaphoresis, or nausea. She has had no recent fever, cough, bleeding. She had no trauma to her chest. She denies a history of exertional dyspnea, palpitations, or syncope. PAST MEDICAL HISTORY: Has had previous hysterectomy, hip surgery, cholecystectomy. She has had some recent spotting and was told that she is going to have to have her cervix removed in the future. She has a previous history of hypertension, but no history of diabetes, hyperlipidemia. She has a history of hypothyroidism, so only medication at this time includes Synthroid. ALLERGIES: SHE HAS AN ALLERGY TO AMPICILLIN. FAMILY HISTORY: Negative for heart disease. SOCIAL HISTORY: She is . [place] [address] HISTORY AND PHYSICAL Name: IVANA GAO Room: [address] IN [facility]#: [id number] Admission: 08/23/20 Attend Phys: Isael Yanes MD, F Discharge: Date of : 54 Report #: [id number] [place]. 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 No smoking or alcohol abuse. REVIEW OF SYSTEMS: No history of stroke, asthma, liver disease, GI bleeding. She has had a kidney stone that required surgery in the past. No cancer, no psychiatric illness, no chronic skin condition. PHYSICAL EXAMINATION: GENERAL: Revealed elderly female who appeared in moderate distress secondary to chest pain. VITAL SIGNS: On admission, blood pressure 206/90, pulse is 90. She is afebrile. HEENT: She was anicteric. Conjunctivae pink. Mucous membranes moist. NECK: Veins did not appear distended. No carotid bruits. Neck was supple. CHEST: Clear to auscultation. HEART: Regular rate and rhythm. No murmur. ABDOMEN: Soft. EXTREMITIES: Had no edema. Dorsalis pedis pulses 2+ bilaterally. SKIN: Cool and dry. NEUROLOGIC: Nonfocal. PSYCHIATRIC: Mood is appropriate. IMAGING AND LABORATORY DATA: ECG on admission showed a sinus rhythm. There is up to 1.[address] segment elevation in lead II, III, aVF and reciprocal ST segment depression in V1 through V5. Her lab work on admission, sodium was 138, potassium was 3.1, creatinine 0.9. Her troponin on admission was 12.97. BNP 84034. She had a lipid profile in March, cholesterol 173, triglycerides 79, HDL 67, LDL 91. TSH in March was 0.9. Her white blood cell count 13.4, hematocrit 37.1. Her COVID antigen test was negative. The patient had a carotid Doppler study performed in March that showed no significant stenosis. She actually had a CT scan of the head in February after she fell, which showed no acute abnormality. IMPRESSION AND RECOMMENDATIONS: 1. Acute inferior ST segment elevation myocardial infarction. Recommend urgent cardiac catheterization. 2. Hypertension. I would recommend starting a beta nilda. 3. Hyperlipidemia. Recommend a statin drug. 4. Recent spotting. The patient will need cervix removed in the future. 5. History of hypothyroidism. Critical care time was from 1:15 p.m. to 2:30 p.m. for a total of 1 hour and 15 minutes [place] [address] HISTORY AND PHYSICAL Name: IVANA GAO Room: [address] IN ..#: [id number] Admission: 08/23/20 Attend Phys: Isael Yanes MD, F Discharge: Date of : 54 Report #: [id number] Isael Yanes MD FACC DRB/CARL/JASON <ELECTRONICALLY SIGNED> By: Isael Yanes MD, ELIDA 08/24/20 0956 1317 1453Dne Yanes MD, ELIDA /nt
--- NOTE | 2020-08-24 11:43 | EKG ---
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 : 1950 Requested By: Isael Yanes Order Number: [id number] Reading MD: Patrice Valdes Measurements Intervals [place] Rate: 63 P: 44 CT: 110 QRS: 46 QRSD: 65 T: 174 QT: 476 QTc: 488 Interpretive Statements Sinus rhythm Borderline short CT interval Low voltage, extremity leads Abnrm T, consider ischemia, anterolateral lds Compared to ECG 08/23/2020 15:29:57 Ectopic atrial rhythm no longer present Myocardial infarct finding still present Possible ischemia still present Electronically Signed On 08-24-2020 11:43:00 CDT by Patrice Valdes [email or web address] <ELECTRONICALLY SIGNED> By: Patrice Valdes MD, [facility] 08/24/20 1143 0336 0336 Patrice Valdes MD, [facility] /EPI
--- NOTE | 2020-08-24 13:38 | NUR ---
Met with patient at bedside and introduced role of CM. Patient admitted for Chest pain and had a cath with stents placed yesterday. Patient lives at home in a house with her . No stairs to enter home and no stairs inside of home. Patient independent with ADLs and drives. 6 years ago patient had to use a walker after hip surgery and had HH services at that time (Doesnt recall name) but otherwise, no DME equipment needed and no home O2. No hx of BHS services, infusion therapy, SNF/rehab or dialysis. PCP is Dr. Wu Kenney. Tentative plan is for patient to be downgraded to tele unit today and discharge tomorrow. No needs anticipated at discharge.
[2020-08-25] VITALS: BP 123/66
[2020-08-25 04:00] VITALS: BP 121/61
--- NOTE | 2020-08-25 06:51 | NUR ---
PT SLEPT MOST OF SHIFT. ASSESSMENT DOCUMENTED. MEDS GIVEN PER E-MAR. IV PATENT, NO REPORTS OF PAIN. CATH SITE TO RADIAL REMAINED SAME. PT ABLE TO MAKE NEEDS KNOWN. WILL CONTINUE WITH PLAN OF CARE.
[2020-08-25] MEDS ORDERED: EFFIENT10 MG PO (08:58)
[2020-08-25] MEDS ORDERED: LIPITOR 40 MG T40 M1 PO (08:58)
[2020-08-25] MEDS ORDERED: NITROGLYCERIN0.4 MG SUBLING (08:59)
[2020-08-25] MEDS ORDERED: CARVEDILOL3.125 MG PO (09:00)
[2020-08-25] MEDS ORDERED: COZAAR 50 MG TA50 M1 PO (09:00)
[2020-08-25] MEDS ORDERED: BAYER CHEWABLE81 MG PO (09:01)
[2020-08-25] MEDS ORDERED: SPIRONOLACTONE25 MG PO (09:01)
--- NOTE | 2020-08-25 10:35 | EKG ---
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 : 1950 Requested By: Isael Yanes Order Number: [id number] Reading MD: Isael Yanes Measurements Intervals [place] Rate: 74 P: 52 WY: 119 QRS: 63 QRSD: 60 T: 243 QT: 395 QTc: 439 Interpretive Statements Sinus rhythm Borderline short [place] interval Borderline low voltage, extremity leads Abnormal R-wave progression, early transition Borderline repolarization abnormality Baseline wander in lead(s) V6 Compared to ECG 08/24/2020 03:36:22 no change Electronically Signed On 08-25-2020 10:34:44 CDT by Isael Yanes [email or web address] <ELECTRONICALLY SIGNED> By: Isael Yanes MD, [facility] 08/25/20 1034 2 Isael Yanes MD, [facility] /EPI
[2020-08-25 12:41] VITALS: BP 126/63
[2020-08-25 13:17] VITALS: BP 126/63
--- NOTE | 2020-08-25 14:18 | NUR ---
PT A&OX4 VSS. R RADIAL CATH SITE C/D/I, BRUISING TO LFA PRESENT AT TIME OF ASSUMING CARE THIS AM. PT UP AD TATY, GAIT STEADY. PT DENIES PAIN. IV TO RAC PATENT AT TIME OF ASSUMING CARE THIS AM. IV DC'D PRIOR TO LEAVING UNIT. PT REMAINS ON ROOM AIR. SINUS ON MONITOR. PT STATES UNDERSTANDING OF DC INSTRUCTIONS AND RX INFORMATION PROVIDED. PT ALSO STATES UNDERSTANDING OF FOLLOW UP INFORMATION PROVIDED. PT DRESSED INDEPENDENTLY. PT TRANSPORTED TO EXIT IN WHEELCHAIR WITH NURSING STAFF.
--- NOTE | 2020-08-25 15:39 | D ---
[address] [address] DISCHARGE SUMMARY Name: IVANA GAO Room: [address] IN .R.#: [id number] Admission: 08/23/20 Attend Phys: Isael Yanes MD, F Discharge: 08/25/20 Date of : 54 Report #: [id number] THIS REPORT FOR: cc: Wu Kenney MD, Tuongvan T. MD Blick, David R. MD [facility] ~ DOC #: [id number] cc: MD Isael Hernandez MD [facility] DATE OF DISCHARGE: 08/25/2020 DISCHARGE DIAGNOSES: 1. Acute inferior ST-segment elevation myocardial infarction. 2. Coronary artery disease. 3. Hypertension. CONSULTANTS: None. PROCEDURES: Emergent left heart catheterization with placement of drug-eluting stents in the LAD and circumflex artery via the radial approach. HISTORY OF PRESENT ILLNESS: The patient is a 70-year-old white female who was brought to the emergency room complaining of chest pain. The patient has had several hospitalizations here at [place] in the past. She is actually admitted here in 07/2019 after she fell and had femoral fracture that required a boot, but no surgery. She had a history of high blood pressure, but was not on blood pressure medications at that time. She was actually admitted here in 03/2020 after a dizzy spell. She again was noted to be hypertensive. She underwent an extensive evaluation including CT scan of the head, carotid Doppler study, but she was felt to have vertigo. The patient has been doing well recently, but for 12 hours prior to admission, she noticed intermittent chest pressure. It tended to come and go. It is not related to exertion or meals. It lasted all night long. The next morning, she went to work, but the pain got worse. She then drove herself to the emergency room, was found to be having evidence of acute inferior STEMI. I saw her on an emergent basis. She denied any recent fever, cough, bleeding, exertional dyspnea, palpitations, or syncope. PAST MEDICAL HISTORY: She has had previous hysterectomy, hip surgery, cholecystectomy. She has recent vaginal spotting and was told that she would need to have her cervix removed in the future. She has a history of hypertension, but is no longer on medications. No history of diabetes, hyperlipidemia. She has a history of hypothyroidism. MEDICATIONS: Her only medications [place] [address] DISCHARGE SUMMARY Name: IVANA GAO Room: [address]#: [id number] Admission: 08/23/20 Attend Phys: Isael Yanes MD, F Discharge: 08/25/20 Date of : 54 Report #: [id number] ALLERGIES: SHE HAS AN ALLERGY TO PENICILLIN. PHYSICAL EXAMINATION: GENERAL: Elderly female who appeared in moderate distress. VITAL SIGNS: Her blood pressure is 200/90, pulse is 90. CHEST: Clear to auscultation. CARDIOVASCULAR: Regular rate and rhythm. EXTREMITIES: Had no edema. ECG on admission showed a sinus rhythm. There is 1/[address] segment elevation in lead II, III and aVF, reciprocal ST segment depression in V1 through V5. LABORATORY DATA: Sodium 138, potassium 3.1, creatinine 0.9. Troponin on admission was 12. Cholesterol 173, triglycerides 79, HDL 67, LDL 91. TSH 0.9. Hematocrit 37.1. Her COVID antigen test was negative. HOSPITAL COURSE: The patient was felt to be having an acute inferior STEMI with the onset almost 12 hours ago. She was taken urgently to the cardiac catheterization lab to perform cardiac catheterization from the right radial artery. She was noted to have a 50% narrowing of the proximal LAD, 90% narrowing of the mid LAD, 80% narrowing of the distal LAD. The very apical portion of the vessel had a 90% stenosis. There was a 70% ostial narrowing of the diagonal branch. The circumflex had a 30% proximal stenosis. The third marginal branch distally was occluded with a thrombus. There is minimal ANNETTE grade 1 antegrade flow. The right coronary artery had a 50% mid stenosis. The small posterior descending branch of the right coronary had ostial 90% stenosis. There was collateral flow to the third marginal branch of circumflex. I then performed an emergent angioplasty and placed a drug-eluting stent in the third marginal branch. I also placed a long drug-eluting stent in the mid LAD. I did not stent the apical LAD because of the small size. I also did not stent the ostium of the posterior descending branch of the right coronary artery because of its ostial location and small size. The left ventricular end-diastolic pressure was elevated at 32 and her ejection fraction of 30-35% with apical akinesia. A Vasc Band was placed at the end of the procedure. She was given heparin and Aggrastat. She was then loaded with Effient. Fortunately, she had no further chest pain, shortness of breath or arrhythmias following the procedure. She did have evidence of acute systolic heart failure with elevated LVEDP and she was started on Aldactone. She was also started on carvedilol and losartan for her high blood pressure. She was started on a statin drug. Prior to discharge, she was ambulating in the maki and had no significant complaints. She did develop a small hematoma in the right wrist. At the time of discharge, her blood pressure was 130/60, pulse was 70. She was afebrile. Followup lab work, her creatinine was still 0.9. After potassium supplements, her potassium [facility] [address] [place] [address] DISCHARGE SUMMARY Name: IVANA GAO Room: [address]#: [id number] Admission: 08/23/20 Attend Phys: Isael Yanes MD, F Discharge: 08/25/20 Date of : 54 Report #: [id number] was 4.4. Her fasting blood sugar was mildly elevated at 120 consistent with glucose intolerance. Her peak troponin was 133, BNP 8361 consistent with acute systolic heart failure. Cholesterol 147, triglycerides 57, HDL 51, LDL 85. TSH in March was 2.9. Previous hemoglobin A1c was 5.5 consistent with glucose intolerance. Followup hematocrit was 28.9 dropping from 37 following the procedure. Her followup ECG showed a sinus rhythm with early transition consistent with true posterior infarction. The patient was discharged on the following medications: She was to continue her home medications, Synthroid 112 mcg a day. She takes potassium supplements 20 mEq a day. She was to take aspirin 81 mg a day, Lipitor 40 mg a day, Effient 10 mg a day for 1 year, spironolactone 25 mg a day for cardiomyopathy, losartan 25 mg a day for hypertension. She is also given a prescription for nitroglycerin to take as needed. It was recommended she gradually increase her activity and enroll in cardiac rehabilitation. 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 She is going to return to see my nurse practitioner in 2 weeks. At that time, her activity will be increased if she is having no significant complaints. I plan on seeing her back in cardiology clinic in 8 weeks with a limited echo. If her ejection fraction continued to be less than 35%, I would consider elective implantation of defibrillator. The patient was to contact my office if she had recurrent chest pain, shortness of breath or bleeding. Isael Yanes MD [facility] EUSEBIA/THIERRY <ELECTRONICALLY SIGNED> By: Isael Yanes MD, [facility] 08/25/20 1539 0753 1242Dne Yanes MD, [facility] /nt
== END 2020-08-25 14:02 | disposition home or self-care (01) | DRG 246 ==
LOC: M.ERS 12:13 → M.CL 12:28 → M.TBA-CV 12:28 → M.ICU 14:55 → M.2W 08-24 16:11
PROVIDERS: Family Medicine; ADMIT Internal Medicine Cardiovascular Disease; ATTEND Internal Medicine Cardiovascular Disease
PROC: 4A023N7 Measurement of Cardiac Sampling and Pressure, Left Heart, Percutaneous Approach (ICD-10-PCS; principal; 2020-08-23)
PROC: 027135Z Dilation of Coronary Artery, Two Arteries with Two Drug-eluting Intraluminal Devices, Percutaneous Approach (ICD-10-PCS; principal; 2020-08-23)
PROC: B211YZZ Fluoroscopy of Multiple Coronary Arteries using Other Contrast (ICD-10-PCS; principal; 2020-08-23)
PROC: B215YZZ Fluoroscopy of Left Heart using Other Contrast (ICD-10-PCS; principal; 2020-08-23)
DX: I21.19 ST elevation (STEMI) myocardial infarction involving other coronary artery of inferior wall (principal); I50.21 Acute systolic (congestive) heart failure; I42.9 Cardiomyopathy, unspecified; Z96.641 Presence of right artificial hip joint; E03.9 Hypothyroidism, unspecified; Z20.822 Contact with and (suspected) exposure to COVID-19; I25.10 Atherosclerotic heart disease of native coronary artery without angina pectoris; I11.0 Hypertensive heart disease with heart failure; E78.5 Hyperlipidemia, unspecified; Z90.710 Acquired absence of both cervix and uterus; Z87.442 Personal history of urinary calculi; Z88.8 Allergy status to other drugs, medicaments and biological substances; Z88.0 Allergy status to penicillin

== ENCOUNTER → 2020-09-19 | Outpatient (CLI) | payer MEDICARE, OTHER ==
[~2020-09-19] MED LIST changes: +BAYER CHEWABLE81 MG PO; +CARVEDILOL3.125 MG PO; +COZAAR 50 MG TA50 M1 PO; +EFFIENT10 MG PO; +LIPITOR 40 MG T40 M1 PO; +NITROGLYCERIN0.4 MG SUBLING; +SPIRONOLACTONE25 MG PO
--- NOTE | 2020-09-19 12:47 | 2DMMODE ---
[place] [address] 2 D/M-MODE ECHOCARDIOGRAM Name: IVANA GAO Room: [facility]#: [id number] Admission: 09/19/20 Attend Phys: Danielle Andres, Discharge: Date of : 54 Date of Service: 09/19/20 1247 Report #: [id number] THIS REPORT FOR: cc: Wu Kenney MD, Tuongvan T. MD Holkins, John M. MD [facility] ~ APPROVED REPORT Study performed: 09/19/2020 09:42:54 EXAM: Limited 2D Echocardiogram Patient Location: Out-Patient BSA: 1.61 HR: 62 bpm BP: 120/70 mmHg Other Information Study Quality: Good Indications Ischemic Cardiomyopathy 2D Dimensions IVSd: 10.21 (7-11mm) LVDd: 37.43 mm PWd: 9.84 (7-11mm) LVDs: 24.79 (25-40mm) Aortic Root: 24.23 mm Left Ventricle The left ventricle is normal size. There is normal LV segmental wall motion. There is normal left ventricular wall thickness. Left ventricular systolic function is normal. The left ventricular ejection fraction is within the normal range. LVEF is 55-60%. The left ventricular diastolic function is normal. Right Ventricle The right ventricle is normal size. The right ventricular systolic function is normal. Atria The left atrium size is normal. The right atrium size is normal. [address] [address] 2 D/M-MODE ECHOCARDIOGRAM Name: IVANA GAO Room: [facility].#: [id number] Admission: 09/19/20 Attend Phys: Danielle Andres, Discharge: Date of : 54 Date of Service: 09/19/20 1247 Report #: [id number] Aortic Valve The aortic valve is normal in structure. Mitral Valve The mitral valve is normal in structure. Tricuspid Valve The tricuspid valve is normal in structure. Great Vessels The aortic root is normal in size. IVC is normal in size and collapses >50% with inspiration. Pericardium There is no pericardial effusion. <Conclusion> The left ventricle is normal size. There is normal left ventricular wall thickness. Left ventricular systolic function is normal. The left ventricular ejection fraction is within the normal range. LVEF is 55-60%. The left ventricular diastolic function is normal. The right ventricle is normal size. The left atrium size is normal. The aortic valve is normal in structure. The mitral valve is normal in structure. The tricuspid valve is normal in structure. IVC is normal in size and collapses >50% with inspiration. There is no pericardial effusion. There is normal LV segmental wall motion. <ELECTRONICALLY SIGNED> By: Amol Soni MD, [facility] 09/19/20 1247 [id number] Amol Soni MD, [facility] /INF
== END ==
LOC: M.CRD 09:52
PROVIDERS: ATTEND Nurse Practitioner
DX: I25.5 Ischemic cardiomyopathy (principal); R55 Syncope and collapse